=== PATIENT | female | born 1955 | race African-American/Black ===

== ENCOUNTER 2018-03-23 16:42 | Emergency (ER) | payer OTHER ==
[~2018-03-23] VITALS: Ht 167.6 cm; Wt 85.0 kg
[~2018-03-23 16:42] MED LIST: ATEN-42 PO; FLUT1DIS IH
[2018-03-23 16:46] VITALS: BP 155/105
[2018-03-23] MEDS ORDERED: SODIUM CHLORIDE 0.9% 1,000 ML IV ONE (17:26)
[2018-03-23] MEDS ORDERED: ONDANSETRON HCL 4MG TABLET PO ONE (17:30)
== END 2018-03-23 21:30 | disposition left against medical advice (07) ==
LOC: ER 17:11
DX: R10.30 Lower abdominal pain, unspecified (principal)
CPT/HCPCS: 93005; 99283; J7030